=== PATIENT | male | born 1935 | race Caucasian/White ===

== ENCOUNTER 2017-04-03 02:50 | Observation (INO) | payer MEDICARE, OTHER ==
[2017-04-03] MEDS ORDERED: SODIUM CHLOR 0.9% 1000 ML INJ 1,000 ML IV SCH (03:19)
[2017-04-03 03:27] VITALS: BP 237/98; PULSE 89; RESP 18; TEMP 98.1; O2SAT 96
[2017-04-03] MEDS ORDERED: MORPHINE SULFATE 4 MG/ML INJ IV PUSH ONE (03:30)
[2017-04-03] MEDS ORDERED: SODIUM CHLORIDE 0.9% FLUSH 10 ML FLUSH IV FLUSH PRN ×2 (03:30→07:15)
[2017-04-03] MEDS ORDERED: ONDANSETRON HCL 4 MG/2 ML VIAL IVP ONE (03:30)
[2017-04-03 03:35] VITALS: RESP 18
--- NOTE | 2017-04-03 03:41 | PD ---
HPI Chief Complaint: Abdominal Pain Time Seen by Provider: 02:58 Travel History International Travel<30 days: No Contact w/Intl Traveler<30days: No Traveled to known affect area: No History of Present Illness HPI 81-year-old male here with family for evaluation of abdominal pain, rectal pain , and constipation. The patient has a rectal mass for which she was admitted to [facility] on Sunday of last week for, however left AMA on because they reportedly did not have colorectal surgery there. Abdominal pain is diffuse, constant, pressure-like, severe. Rectal pain is also severe. He has not had a bowel movement in 3 days. No vomiting. No fever. PFSH Social History Tobacco Use: Yes Allergies-Medications (Allergen,Severity, Reaction): Coded Allergies: alprazolam (Verified Allergy, Severe, 04/03/17) haloperidol (Verified Allergy, Severe, 04/03/17) lorazepam (Verified Allergy, Severe, 04/03/17) Reported Meds & Prescriptions Reported Meds & Active Scripts Active Reported Warfarin 5 Mg Tab 5 Mg PO DAILY Metformin (Metformin HCl) 1,000 Mg Tab 1,000 Mg PO BIDPC Lovastatin 10 Mg Tab 10 Mg PO DAILY Lisinopril 20 Mg Tab 20 Mg PO DAILY Furosemide 20 Mg Tab 20 Mg PO DAILY Ferrous Sulfate 325 Mg (65 Mg Iron) Tablet 325 Mg PO DAILY Doxazosin (Doxazosin Mesylate) 2 Mg Tab 2 Mg PO BID Carvedilol 12.5 Mg Tab 12.5 Mg PO BID Review of Systems Except as stated in HPI: all other systems reviewed are Neg Physical Exam Narrative GENERAL: Well-developed, well-nourished, awake, no apparent distress. SKIN: Focused skin assessment warm/dry. HEAD: Atraumatic. Normocephalic. EYES: Pupils equal and round. No scleral icterus. No injection or drainage. ENT: No nasal bleeding or discharge. Mucous membranes pink and moist. Poor dentition with several missing teeth. NECK: Trachea midline. No JVD. CARDIOVASCULAR: Regular rate and rhythm. No murmur appreciated. RESPIRATORY: No accessory muscle use. Clear to auscultation. Breath sounds equal bilaterally. GASTROINTESTINAL: Abdomen soft, mild distention with moderate diffuse tenderness. Diminished bowel sounds. RECTUM: Large fungating/perirectal mass that is diffusely tender. MUSCULOSKELETAL: No obvious deformities. No clubbing. No cyanosis. No edema. NEUROLOGICAL: Awake and alert. No obvious cranial nerve deficits. Motor grossly within normal limits. Normal speech. PSYCHIATRIC: Appropriate mood and affect; insight and judgment normal. Data Data Last Documented VS Vital Signs Date Time Temp Pulse Resp B/P (MAP) Pulse Ox O2 Delivery O2 Flow Rate FiO2 04/03/17 05:49 95 16 171/77 (108) 96 Room Air 04/03/17 03:27 98.1 Orders Orders Complete Blood Count With Diff (04/03/17 03:19) Comprehensive Metabolic Panel (04/03/17 03:19) Prothrombin Time / Inr (Pt) (04/03/17 03:19) Act Partial Throm Time (Ptt) (04/03/17 03:19) Iv Access Insert/Monitor (04/03/17 03:19) Ecg Monitoring (04/03/17 03:19) Oximetry (04/03/17 03:19) Morphine Inj (Morphine Inj) (04/03/17 03:30) Ondansetron Inj (Zofran Inj) (04/03/17 03:30) Sodium Chlor 0.9% 1000 Ml Inj (Ns 1000 M (04/03/17 03:19) Sodium Chloride 0.9% Flush (Ns Flush) (04/03/17 03:30) Oral Contrast - Adult (04/03/17 03:34) Diatrizoate Liq ( Gastroview Liq) (04/03/17 03:51) Ct Abd/Pel W Iv Contrast(Rout) (04/03/17 04:19) Hydromorphone Pf Inj (Dilaudid Pf Inj) (04/03/17 04:45) Iohexol 350 Inj (Omnipaque 350 Inj) (04/03/17 06:32) Lactulose Liq (Lactulose Liq) (04/03/17 07:00) Place In Observation (04/03/17 ) Vital Signs (Adult) Q4H (04/03/17 07:05) Activity Oob With Assistance (04/03/17 07:05) Senior Architect/Design Manager / Telemetry .CONTINUOUS (04/03/17 07:05) Diet Heart Healthy (04/03/17 Breakfast) Sodium Chloride 0.9% Flush (Ns Flush) (04/03/17 07:15) Sodium Chloride 0.9% Flush (Ns Flush) (04/03/17 09:00) Basic Metabolic Panel (Bmp) (04/04/17 06:00) Complete Blood Count With Diff (04/04/17 06:00) Pt Request For Service (04/03/17 07:05) Case Management Consult (04/03/17 07:05) Naloxone Inj (Narcan Inj) (04/03/17 07:15) Docusate Sodium-Senna (Yumiko-Colace) (04/03/17 09:00) Magnesium Hydroxide Liq (Milk Of Magnesi (04/03/17 07:15) Sennosides (Senokot) (04/03/17 07:15) Bisacodyl Supp (Dulcolax Supp) (04/03/17 07:15) Lactulose Liq (Lactulose Liq) (04/03/17 07:15) Consult Colorectal Surgery (04/03/17 ) Admit Order (Ed Use Only) (04/03/17 07:12) Labs Laboratory Tests Test 04/03/17 04:00 White Blood Count 9.8 TH/MM3 Red Blood Count 3.88 MIL/MM3 Hemoglobin 12.3 GM/DL Hematocrit 36.4 % Mean Corpuscular Volume 93.9 FL Mean Corpuscular Hemoglobin 31.8 PG Mean Corpuscular Hemoglobin Concent 33.8 % Red Cell Distribution Width 15.2 % Platelet Count 205 TH/MM3 Mean Platelet Volume 8.2 FL Neutrophils (%) (Auto) 79.6 % Lymphocytes (%) (Auto) 9.1 % Monocytes (%) (Auto) 5.9 % Eosinophils (%) (Auto) 4.5 % Basophils (%) (Auto) 0.9 % Neutrophils # (Auto) 7.8 TH/MM3 Lymphocytes # (Auto) 0.9 TH/MM3 Monocytes # (Auto) 0.6 TH/MM3 Eosinophils # (Auto) 0.4 TH/MM3 Basophils # (Auto) 0.1 TH/MM3 CBC Comment DIFF FINAL Differential Comment Prothrombin Time 29.6 SEC Prothromb Time International Ratio 2.9 RATIO Activated Partial Thromboplast Time 46.3 SEC Blood Urea Nitrogen 15 MG/DL Creatinine 1.16 MG/DL Random Glucose 304 MG/DL Total Protein 7.5 GM/DL Albumin 3.3 GM/DL Calcium Level 8.6 MG/DL Alkaline Phosphatase 81 U/L Aspartate Amino Transf (AST/SGOT) 17 U/L Alanine Aminotransferase (ALT/SGPT) 23 U/L Total Bilirubin 0.3 MG/DL Sodium Level 134 MEQ/L Potassium Level 4.3 MEQ/L Chloride Level 101 MEQ/L Carbon Dioxide Level 27.0 MEQ/L Anion Gap 6 MEQ/L Estimat Glomerular Filtration Rate 60 ML/MIN MDM Medical Decision Making Medical Screen Exam Complete: Yes Emergency Medical Condition: Yes Differential Diagnosis Constipation, bowel obstruction, rectal mass/cancer Narrative Course Vital signs reviewed. CBC is essentially unremarkable. CMP is remarkable for random glucose 304, otherwise unremarkable. INR is 2.19. CT abdomen pelvis: CONCLUSION: 1. Moderate amount of stool in the distal colon with mildly nonspecific bowel gas pattern. 2. Nonobstructing bilateral renal calculi. 3. Small calcified gallstones. 4. Minimal pleural effusions. Patient continues to complain of rectal pain despite 2 doses of IV pain medication. He has a large surrounding his rectum, unable to form a rectal exam wasn't particularly disimpact the patient because of severe tenderness. I suspect he is constipated because it is too painful for him. He has not yet had this rectal mass with that. He'll be admitted for further treatment and evaluation rectal mass. Case discussed with hospitalist Dr. Clark who will admit the patient to her service. Diagnosis Primary Impression: Rectal mass Additional Impressions: Rectal pain Abdominal pain Qualified Codes: R10.84 - Generalized abdominal pain Constipation Qualified Codes: K59.00 - Constipation, unspecified Admitting Information Admitting Physician Requests: Edwin Greer MD Apr 03, 2017 03:41
[2017-04-03] MEDS ORDERED: DIATRIZOATE MEGLUM/DIATRIZOATE SOD 9 ML CUP ONE (03:51)
[2017-04-03 04:15] LABS: AUTOMATED NEUTROPHIL # 7.8 TH/MM3 (1.8-7.7); BASOPHIL # 0.1 TH/MM3 (0-0.2); BASOPHIL % 0.9 % (0.0-2.0); EOSINOPHIL # 0.4 TH/MM3 (0-0.4); EOSINOPHIL % 4.5 % (0.0-4.0); HEMATOCRIT 36.4 % (39.0-51.0); HEMO FLAGS DIFF FINAL; LYMPH % 9.1 % (9.0-44.0); LYMPHOCYTE # 0.9 TH/MM3 (1.0-4.8); MEAN CELL VOLUME 93.9 FL (80.0-100.0); MEAN CORPUSCULAR HEMOGLOBIN 31.8 PG (27.0-34.0); MEAN CORPUSCULAR HGB CONC 33.8 % (32.0-36.0); MONO % 5.9 % (0.0-8.0); NEUT % 79.6 % (16.0-70.0); PLATELET COUNT 205 TH/MM3 (150-450); RED BLOOD COUNT 3.88 MIL/MM3 (4.50-5.90); RED CELL DISTRIBUTION WIDTH 15.2 % (11.6-17.2); WHITE BLOOD COUNT 9.8 TH/MM3 (4.0-11.0)
[2017-04-03 04:16] LABS: APTT (PATIENT) 46.3 SEC (24.3-30.1); INTERNATIONAL NORMALIZED RATIO 2.9 RATIO; PROTHROMBIN TIME - PATIENT 29.6 SEC (9.8-11.6)
[2017-04-03 04:30] LABS: ALT (GPT) 23 U/L (12-78); ANION GAP 6 MEQ/L (5-15); AST (GOT) 17 U/L (15-37); BLOOD UREA NITROGEN 15 MG/DL (7-18); CHLORIDE 101 MEQ/L (98-107); GLOMERULAR FILTRATION RATE 60 ML/MIN (>89); POTASSIUM 4.3 MEQ/L (3.5-5.1); SODIUM (NA) 134 MEQ/L (136-145)
[2017-04-03 04:32] LABS: ALKALINE PHOSPHATASE 81 U/L (45-117); TOTAL BILIRUBIN ADULT 0.3 MG/DL (0.2-1.0)
[2017-04-03] MEDS ORDERED: HYDROmorphone HCL PF 1 MG/ML VIAL IV PUSH ONE (04:45)
[2017-04-03] MEDS ORDERED: FERR325T18 PO (05:48)
[2017-04-03] MEDS ORDERED: LOVA10TA PO (05:48)
[2017-04-03] MEDS ORDERED: WARF-23 PO (05:48)
[2017-04-03] MEDS ORDERED: METF1000 PO (05:48)
[2017-04-03] MEDS ORDERED: LISI-515 PO (05:48)
[2017-04-03] MEDS ORDERED: FURO20TA PO (05:48)
[2017-04-03] MEDS ORDERED: DOXA1TAB35 PO (05:48)
[2017-04-03] MEDS ORDERED: CARV12.52 PO (05:48)
[2017-04-03 05:49] VITALS: BP 171/77; PULSE 95; RESP 16; O2SAT 96
[2017-04-03] MEDS ORDERED: IOHEXOL 350 MG/ML 10 ML VIAL (for RAD DIAG) IVCONTRAST ONE (06:32)
--- NOTE | 2017-04-03 06:56 | RADRPT ---
EXAM DATE/TIME: 04/03/2017 06:10 CORRECTION Corrected on: April 03, 2017; [place] COMPARISON: No previous studies available for comparison. INDICATIONS : Abdomen pain. IV CONTRAST: 100 cc Omnipaque 350 (iohexol) IV ORAL CONTRAST: Prescribed oral contrast ingested. RADIATION DOSE: 14.86 CTDIvol (mGy) MEDICAL HISTORY : Cardiovascular disease. Hypertension. SURGICAL HISTORY : None. ENCOUNTER: Initial ACUITY: 3 days PAIN SCALE: 8/10 LOCATION: Bilateral abdomen. TECHNIQUE: Volumetric scanning of the abdomen and pelvis was performed. Using automated exposure control and ad justment of the mA and/or kV according to patient size, radiation dose was kept as low as reasonably achievable to obtain optimal diagnostic quality images. DICOM format image data is available electro nically for review and comparison. FINDINGS: LOWER LUNGS: Cardiomegaly. Patient is status post median sternotomy. There are minimal pleural effusions. LIVER: Homogeneous density without lesion. There is no dilation of the biliary tree. There are small calcif ied gallstones. SPLEEN: Normal size without lesion. PANCREAS: Within normal limits. KIDNEYS: The right kidney is normal in size and shape with nonobstructing 1 cm renal calculus centrally. The l eft kidney demonstrates focal atrophy and a tiny calculus in the lower pole. There is no hydronephros is or focal mass. ADRENAL GLANDS: The right adrenal gland is thickened and low-density could represent an adenoma. The left is slightly thickened. VASCULAR: There is no aortic aneurysm. BOWEL/MESENTERY: There is a moderate amount of stool in the distal colon. Scattered diverticuli. There are multiple lo ops of nondilated air-containing small bowel several small air-fluid levels. There is no free air or fluid. ABDOMINAL WALL: Within normal limits. RETROPERITONEUM: There is no lymphadenopathy. BLADDER: No wall thickening or mass. REPRODUCTIVE: Dense calcifications are present in the prostate gland. INGUINAL: There is no lymphadenopathy or hernia. MUSCULOSKELETAL: Within normal limits for patient age. Osteopenia, degenerative changes of scoliosis are noted. The pa tient is status post cholecystectomy and there are epicardial patient wires present. CONCLUSION: 1. Moderate amount of stool in the distal colon with mildly nonspecific bowel gas pattern. 2. Nonobstructing bilateral renal calculi. 3. Small calcified gallstones. 4. Minimal pleural effusions. Rickie Huffman MD on April 03, 2017 at 6:47 Board Certified Radiologist. This report was verified electronically. Rickie Huffman MD on April 03, 2017 at 6:56 Board Certified Radiologist. This report was verified electronically.
[2017-04-03] MEDS ORDERED: LACTULOSE SYRUP 20 GM/30 ML CUP PO ONE (07:00)
[2017-04-03] MEDS ORDERED: MAGNESIUM HYDROXIDE SUSP 30 ML CUP PO PRN (07:15)
[2017-04-03] MEDS ORDERED: SENNOSIDES 8.6 MG TAB PO PRN (07:15)
[2017-04-03] MEDS ORDERED: NALOXONE HCL 0.4 MG/ML AMP IV PUSH PRN (07:15)
[2017-04-03] MEDS ORDERED: LACTULOSE SYRUP 20 GM/30 ML CUP PO PRN (07:15)
[2017-04-03] MEDS ORDERED: BISACODYL 10 MG SUPP RECTAL PRN (07:15)
[2017-04-03 08:16] VITALS: BP 142/69; PULSE 83; RESP 18; TEMP 97.7; O2SAT 97
[2017-04-03] MEDS ORDERED: DOCUSATE SODIUM 50 MG/SENNA 8.6 MG TAB PO SCH (09:00)
[2017-04-03] MEDS ORDERED: SODIUM CHLORIDE 0.9% FLUSH 10 ML FLUSH IV FLUSH SCH (09:00)
[2017-04-03 11:58] VITALS: BP 154/68; PULSE 75; RESP 18; TEMP 97.6; O2SAT 96
[2017-04-03 13:00] VITALS: PULSE 76
[2017-04-03] MEDS ORDERED: GLUCAGON 1 MG/ML VIAL OTHER PRN (14:15)
[2017-04-03] MEDS ORDERED: DEXTROSE 50% IN WATER 50 ML VIAL(D50) IV PUSH PRN (14:15)
--- NOTE | 2017-04-03 14:23 | HHI.HP ---
HPI Service [facility] Hospitalists Primary Care Physician Unknown Admission Diagnosis rectal mass, rectal pain, abdominal pain, constipation Diagnoses: Chief Complaint: Abdominal pain Rectal pain Constipation Travel History International Travel<30 Days: No Contact w/Intl Traveler <30 Da: No Traveled to Known Affected Are: No History of Present Illness This is an 81yo male with a PMHX of diabetes, CAD s/p CABG, CHF, HTN, ISMAEL on po iron supplementation, HLD, hx of mechanical heart valve replacement and atrial fibrillation on Warfarin who presents to [facility] ED with complaints of abdominal pain, rectal pain and constipation not having had a bowel movement in 3 days. Patient given lactulose in the ED and had a subsequent bowel movement. CT abd/pelvis obtained in the ED reveals moderate amount of stool in the distal colon with mildly nonspecific bowel gas pattern, nonobstructing bilateral renal calculi and small calcified gallstones. Patient was seen at [facility] and was told by ED physician that he had a rectal mass. We do not have those images for review. Patient reports black stools but takes iron supplementation twice a day. Review of Systems Except as stated in HPI: all other systems reviewed are Neg Past Family Social History Past Medical History Diabetes Hypertension Dyslipidemia CAD s/p CABG Mechanical heart valve on Warfarin CHF ISMAEL Atrial fibrillation Dementia Hx of GIB Past Surgical History s/p CABG Cholecystectomy AVR with mechanical valve Reported Medications Warfarin 5 Mg Tab 5 Mg PO DAILY Metformin (Metformin HCl) 1,000 Mg Tab 1,000 Mg PO BIDPC Lovastatin 10 Mg Tab 10 Mg PO DAILY Lisinopril 20 Mg Tab 20 Mg PO DAILY Furosemide 20 Mg Tab 20 Mg PO DAILY Ferrous Sulfate 325 Mg (65 Mg Iron) Tablet 325 Mg PO DAILY Doxazosin (Doxazosin Mesylate) 2 Mg Tab 2 Mg PO BID Carvedilol 12.5 Mg Tab 12.5 Mg PO BID Allergies: Coded Allergies: alprazolam (Verified Allergy, Severe, 04/03/17) haloperidol (Verified Allergy, Severe, 04/03/17) lorazepam (Verified Allergy, Severe, 04/03/17) Active Ordered Medications Current Medications Medications (Trade) Dose Ordered Sig/Roddy Route Start Time Stop Time Status Last Admin (NS Flush) 2 ml UNSCH PRN IV FLUSH 04/03/17 07:15 (NS Flush) 2 ml BID IV FLUSH 04/03/17 09:00 04/03/17 13:16 (Narcan Inj) 0.4 mg UNSCH PRN IV PUSH 04/03/17 07:15 (Yumiko-Colace) 1 tab BID PO 04/03/17 09:00 04/03/17 07:25 (Milk Of Magnesia Liq) 30 ml Q12H PRN PO 04/03/17 07:15 (Senokot) 17.2 mg Q12H PRN PO 04/03/17 07:15 (Dulcolax Supp) 10 mg DAILY PRN RECTAL 04/03/17 07:15 (Lactulose Liq) 30 ml DAILY PRN PO 04/03/17 07:15 Family History Parents from [place] Social History Patient reports extensive tobacco use 70+ years. Patient denies any alcohol use. Patient lives at home. Physical Exam Vital Signs Vital Signs Date Time Temp Pulse Resp B/P (MAP) Pulse Ox O2 Delivery O2 Flow Rate FiO2 04/03/17 11:58 97.6 75 18 154/68 (96) 96 04/03/17 08:16 97.7 83 18 142/69 (93) 97 04/03/17 05:49 95 16 171/77 (108) 96 Room Air 04/03/17 03:35 18 04/03/17 03:27 98.1 89 18 237/98 (144) 96 Physical Exam GENERAL: This is a well-nourished, well-developed patient, in no apparent distress. Confused. at the bedside. SKIN: No rashes, ecchymoses or lesions. Cool and dry. HEAD: Atraumatic. Normocephalic. No temporal or scalp tenderness. EYES: Pupils equal round and reactive. Extraocular motions intact. No scleral icterus. No injection or drainage. ENT: Nose without bleeding, purulent drainage or septal hematoma. Throat without erythema, tonsillar hypertrophy or exudate. Uvula midline. Airway patent. NECK: Trachea midline. No JVD or lymphadenopathy. Supple, nontender, no meningeal signs. CARDIOVASCULAR: Regular rate and rhythm without murmurs, gallops, or rubs. RESPIRATORY: Clear to auscultation. Breath sounds equal bilaterally. No wheezes , rales, or rhonchi. GASTROINTESTINAL: Abdomen soft, non-tender, nondistended. No hepato-splenomegaly , or palpable masses. No guarding. RECTAL: Large anal opening with decreased tone. MUSCULOSKELETAL: Extremities without clubbing, cyanosis, or edema. No joint tenderness, effusion, or edema noted. No calf tenderness. NEUROLOGICAL: Confused. Able to move all extremities spontaneously. Motor and sensory grossly within normal limits. Minimal speech. Laboratory Laboratory Tests Test 04/03/17 04:00 White Blood Count 9.8 Red Blood Count 3.88 Hemoglobin 12.3 Hematocrit 36.4 Mean Corpuscular Volume 93.9 Mean Corpuscular Hemoglobin 31.8 Mean Corpuscular Hemoglobin Concent 33.8 Red Cell Distribution Width 15.2 Platelet Count 205 Mean Platelet Volume 8.2 Neutrophils (%) (Auto) 79.6 Lymphocytes (%) (Auto) 9.1 Monocytes (%) (Auto) 5.9 Eosinophils (%) (Auto) 4.5 Basophils (%) (Auto) 0.9 Neutrophils # (Auto) 7.8 Lymphocytes # (Auto) 0.9 Monocytes # (Auto) 0.6 Eosinophils # (Auto) 0.4 Basophils # (Auto) 0.1 CBC Comment DIFF FINAL Differential Comment Prothrombin Time 29.6 Prothromb Time International Ratio 2.9 Activated Partial Thromboplast Time 46.3 Blood Urea Nitrogen 15 Creatinine 1.16 Random Glucose 304 Total Protein 7.5 Albumin 3.3 Calcium Level 8.6 Alkaline Phosphatase 81 Aspartate Amino Transf (AST/SGOT) 17 Alanine Aminotransferase (ALT/SGPT) 23 Total Bilirubin 0.3 Sodium Level 134 Potassium Level 4.3 Chloride Level 101 Carbon Dioxide Level 27.0 Anion Gap 6 Estimat Glomerular Filtration Rate 60 Result Diagram: 04/03/1739904/03/17399 Imaging Last Impressions Abdomen/Pelvis CT 04/03/17 0419 Signed Impressions: Service Date/Time: Monday, April 03, 2017 06:10 - CONCLUSION: 1. Moderate amount of stool in the distal colon with mildly nonspecific bowel gas pattern. 2. Nonobstructing bilateral renal calculi. 3. Small calcified gallstones. 4. Minimal pleural effusions. MD Sigrid Fiore VTE Risk Assessment Robertrinprashant VTE Risk Assessment: Mod/High Risk (score >= 2) Caprini Risk Assessment Model Point Value = 1 Point Value = 2 Point Value = 3 Point Value = 5 Age 41-60 Minor surgery BMI > 25 kg/m2 Swollen legs Varicose veins or History of unexplained or recurrent spontaneous Oral contraceptives or hormone replacement Sepsis (< 1 month) Serious lung disease, including pneumonia (< 1 month) Abnormal pulmonary function Acute myocardial infarction Congestive heart failure (< 1 month) History of inflammatory bowel disease Medical patient at bed rest Age 61-74 Arthroscopic surgery Major open surgery (> 45 min) Laparoscopic surgery (> 45 min) Malignancy Confined to bed (> 72 hours) Immobilizing plaster cast Central venous access Age >= 75 History of VTE Family history of VTE Factor V Leiden Prothrombin [id number] Lupus anticoagulant Anticardiolipin antibodies Elevated serum homocysteine Heparin-induced thrombocytopenia Other congenital or acquired thrombophilia Stroke (< 1 month) Elective arthroplasty Hip, pelvis, or leg fracture Acute spinal cord injury (< 1 month) Prophylaxis Regimen Total Risk Factor Score Risk Level Prophylaxis Regimen 0-1 Low Early ambulation 2 Moderate Order ONE of the following: *Sequential Compression Device (SCD) *Heparin 5000 units SQ BID 3-4 Higher Order ONE of the following medications: *Heparin 5000 units SQ TID *Enoxaparin/Lovenox 40 mg SQ daily (WT < 150 kg, CrCl > 30 mL/min) *Enoxaparin/Lovenox 30 mg SQ daily (WT < 150 kg, CrCl > 10-29 mL/min) *Enoxaparin/Lovenox 30 mg SQ BID (WT < 150 kg, CrCl > 30 mL/min) AND/OR *Sequential Compression Device (SCD) 5 or more Highest Order ONE of the following medications: *Heparin 5000 units SQ TID (Preferred with Epidurals) *Enoxaparin/Lovenox 40 mg SQ daily (WT < 150 kg, CrCl > 30 mL/min) *Enoxaparin/Lovenox 30 mg SQ daily (WT < 150 kg, CrCl > 10-29 mL/min) *Enoxaparin/Lovenox 30 mg SQ BID (WT < 150 kg, CrCl > 30 mL/min) AND *Sequential Compression Device (SCD) Assessment and Plan Assessment and Plan 81yo male with a PMHX of diabetes, CAD s/p CABG, CHF, HTN, ISMAEL on po iron supplementation, HLD, hx of mechanical heart valve replacement and atrial fibrillation on Warfarin who presents to [facility] ED with complaints of abdominal pain, rectal pain and constipation not having had a bowel movement in 3 days. Abdominal pain Constipation - CT abd/pelvis personally reviewed showing moderate amount of stool in the distal colon with mildly nonspecific bowel gas pattern, nonobstructing bilateral renal calculi and small calcified gallstones. - Patient given lactulose in the ED. Patient has had a large BM. Miralax daily and Pericolace BID. - Obtain a phosphorus level - PT eval/tx - patient told while at [facility] that he has a rectal mass. No e /o mass on CT abd/pelvis obtained at our facility. We do not have access to imaging obtained at . Patient evaluated by Dr. Merino of GI and will recommend patient follow up as outpatient. Hypertension, uncontrolled - BP 237/98 admission - improved, now 154/68 - continue on home dose of Lisinopril 20mg daily Atrial fibrillation on Coumadin CAD s/p CABG HX of AVR, mechanical valve - rate controlled - patient on Warfarin 5mg daily. Continue. - INR therapeutic at 2.9. Pharmacy to dose. Continue to monitor PT/INR. 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 - Continue on Coreg 12.5mg BID - Continue to monitor heart rate Diabetes, uncontrolled - BS 310 at admission - patients home dose of Metformin held - obtain HgbA1c - accucheks - ISS EMILY - creatinine 1.39/GFR 49 - improved after IV fluids given - avoid nephrotoxic agents - continue to monitor kidney function Hyperlipidemia - resume home dose of statin therapy Anemia - mild - iron deficiency anemia - Will hold the iron supplementation for now given severe constipation Ongoing tobaccoism - discussed smoking cessation DVT prophylaxis - Bilateral SCD/PAIGE hose Discharge patient to home with [facility] Condition on discharge: Improved Diabetic heart healthy Diet as tolerated Ad Emily activity Rx written: Miralax and Senniplus daily Follow-up with primary care physician and Dr. Merino of gastroenterology The exam, history, and the medical decision-making described in the above note were completed with the assistance of the mid-level provider. I reviewed and agree with the findings presented. I attest that I had a [id number] encounter with the patient on the same day, and personally performed and documented my assessment and findings in the medical record. Code Status FULL CODE Discussed Condition With Patient, family, nursing staff and Zaina Richter Apr 03, 2017 14:23 James Smith DO Apr 03, 2017 15:02
[2017-04-03] MEDS ORDERED: POLYETHYLENE GLYCOL 17 GM PKG PO ONE (14:45)
[2017-04-03] MEDS ORDERED: MIRA3350 PO (14:55)
[2017-04-03] MEDS ORDERED: SENN187 PO (14:55)
[2017-04-03] MEDS ORDERED: LISINOPRIL 20 MG TAB PO SCH (15:00)
--- NOTE | 2017-04-03 15:33 | HHI.FF ---
Face to Face Verification Diagnosis: (1) Physical deconditioning (2) Impaired mobility and activities of daily living (3) Dementia Physical Therapy Order: Evaluate and Treat, Improve ambulation, Strength and gait training Occupational Therapy Order: Evaluate and Treat, Improve ADL, Gross motor coordination, Fine motor coordination Home Health Nursing Order: Medical education Signs/symptoms of disease process Medication education-adverse effect Nursing assessment with vital signs Home Health Aide Order: To Assist In: Bathing and personal care, operations welder and meal prep I have seen patient Simon Lilly on 04/03/17. My clinical findings support the need for the requested home health care services because: Ltd mobility - disease progression Deconditioned w/ increased weakness Limited ability to care for self Impaired cognition/judgement High risk of falls I certify that my clinical findings support that this patient is homebound because: Impaired cognitive ability/safety Hx COPD- exertion dyspnea/weakness Unsteady gait/balance Unsafe to leave home unassisted Unable to use public transportation Poor cardiac reserve Zaina Renee Apr 03, 2017 15:33
--- NOTE | 2017-04-03 16:15 | HHI.FF ---
Face to Face Verification Diagnosis: (1) Constipation (2) Rectal pain (3) Abdominal pain (4) Dementia (5) Physical deconditioning (6) Impaired mobility and activities of daily living Home Health Aide Order: To Assist In: Bathing and personal care, blood bank laboratory technician and meal prep I have seen patient Simon Lilly on 04/03/17. My clinical findings support the need for the requested home health care services because: Ltd mobility - disease progression Deconditioned w/ increased weakness Med compliance is questionable Limited ability to care for self Impaired cognition/judgement High risk of falls I certify that my clinical findings support that this patient is homebound because: Impaired cognitive ability/safety Hx COPD- exertion dyspnea/weakness Unsteady gait/balance Unsafe to leave home unassisted Unable to use public transportation Zaina Renee Apr 03, 2017 16:15
--- NOTE | 2017-04-03 16:16 | HHI.FF ---
Face to Face Verification Diagnosis: (1) Dementia (2) Physical deconditioning (3) Impaired mobility and activities of daily living (4) Constipation (5) Rectal pain (6) Abdominal pain Physical Therapy Order: Evaluate and Treat, Improve ambulation, Strength and gait training Occupational Therapy Order: Evaluate and Treat, Improve ADL, Gross motor coordination, Fine motor coordination Home Health Nursing Order: Medical education Signs/symptoms of disease process Medication education-adverse effect Nursing assessment with vital signs I have seen patient Simon Lilly on 04/03/17. My clinical findings support the need for the requested home health care services because: Deconditioned w/ increased weakness Limited ability to care for self Impaired cognition/judgement High risk of falls I certify that my clinical findings support that this patient is homebound because: Impaired cognitive ability/safety Unsteady gait/balance Unsafe to leave home unassisted Unable to use public transportation Poor cardiac reserve Zaina Renee Apr 03, 2017 16:16
[2017-04-03] MEDS ORDERED: INSULIN ASPART SUPPLEMENTAL SCALE SQ SCH (17:00)
[2017-04-03 17:01] LABS: MAGNESIUM 1.8 MG/DL (1.5-2.5)
[2017-04-03 17:20] LABS: HEMOGLOBIN A1b 2.6 %; HEMOGLOBIN LA1C 3.3 %
[2017-04-03] MEDS ORDERED: DOXAZOSIN MESYLATE 2 MG TAB PO SCH (21:00)
[2017-04-03] MEDS ORDERED: CARVEDILOL 12.5 MG TAB PO SCH (21:00)
[2017-04-04] MEDS ORDERED: POLYETHYLENE GLYCOL 17 GM PKG PO SCH (09:00)
[2017-04-04] MEDS ORDERED: FUROSEMIDE 20 MG TAB PO SCH (09:00)
[2017-04-04] MEDS ORDERED: PRAVASTATIN SOD 10 MG TAB PO SCH (09:00)
[2017-04-04] MEDS ORDERED: WARFARIN SOD 5 MG TAB PO SCH (16:00)
== END 2017-04-03 16:54 | disposition home or self-care (01) ==
LOC: NEPE 02:50 → NEDA 07:13 → NEPHCDU 07:51
PROVIDERS: ADMIT Hospitalist; ATTEND Hospitalist
DX: R10.9 Unspecified abdominal pain (principal); K59.00 Constipation, unspecified; K62.89 Other specified diseases of anus and rectum; N20.0 Calculus of kidney; K80.20 Calculus of gallbladder without cholecystitis without obstruction; D50.9 Iron deficiency anemia, unspecified; I25.10 Atherosclerotic heart disease of native coronary artery without angina pectoris; I11.0 Hypertensive heart disease with heart failure; I50.9 Heart failure, unspecified; E11.65 Type 2 diabetes mellitus with hyperglycemia; N17.9 Acute kidney failure, unspecified; E78.5 Hyperlipidemia, unspecified; I48.91 Unspecified atrial fibrillation; F03.90 Unspecified dementia, unspecified severity, without behavioral disturbance, psychotic disturbance, mood disturbance, and anxiety; F17.200 Nicotine dependence, unspecified, uncomplicated; Z79.899 Other long term (current) drug therapy; Z79.84 Long term (current) use of oral hypoglycemic drugs; Z95.1 Presence of aortocoronary bypass graft; Z79.01 Long term (current) use of anticoagulants; Z95.2 Presence of prosthetic heart valve
CPT/HCPCS: 74177; 80053; 82272; 83036; 83735; 84100; 85025; 85610; 85730; 96361; 96374; 96375; 96376; 99285; G0378; J1170; J2270; J2405; J7030; Q9963; Q9967